=== PATIENT | male | born 1970 | race Caucasian/White ===

== ENCOUNTER 2017-10-22 09:45 | Emergency (ER) | payer SELFPAY ==
[2017-10-22 10:11] VITALS: BP 134/84
--- NOTE | 2017-10-22 11:04 | UC ---
General HPI - HPI Summary HPI Summary: The patient is a 46-year-old male who presents here with a 6 month history of fatigue and muscle aches. When I entered the room he asked how much it would cost to be seen here. I told him that I did not it know the exact cost but that the bills received from here are typically a little less or perhaps the same as an emergency room visit. He states she was very disappointed that when he told the front desk associate that he was self-pay that he was not informed that this was an expensive visit. 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 He states he has no insurance. He states that he is most concerned about tick borne illnesses. When he learned that his bill would be greater than $100 and that he would be charged additionally for any blood tests ordered he declined any further history or physical exam. In my discussions with him I could tell he was of sound mind. His vital signs were reviewed as well as the nurse's note. In speaking to him he did not appear to have any respiratory problems and he appeared in no distress. He was wearing short- sleeved shirt as well as shorts and all the joints that were visible appeared normal without any erythema or swelling. I was unable to do a complete history and physical exam. I explained to him that I felt his symptoms warranted a thorough exam as well as blood work. I told him I felt he needed a CBC , chemistries, thyroid function tests, rheumatological screening tests, as well as tests for tick born diseases. I explained the risks involved in leaving [place]. I explained that him leaving here without me doing a complete exam and history could result in delay of diagnosis. Explained that his diagnosis could involve infectious disease that prompt treatment of those potential diseases may save him from particularly harmful complications, including . He declined. I'm unable to document any past medical history other than what is noted in the nurse's note. I am unable to document a complete review of systems. He do not know his family history. I am unable to document a complete physical exam. - History of Current Complaint Chief Complaint: UCGeneralIllness Stated Complaint: ACHEY,FATIGUE Time Seen by Provider: 10/22/17 10:10 Pain Intensity: 6 - Allergy/Home Medications Allergies/Adverse Reactions: Allergies Allergy/AdvReac Type Severity Reaction Status Date / Time No Known Allergies Allergy Verified 10/22/17 10:08 Home Medications: Home Medications NK [No Home Medications Reported] 10/22/17 [History Confirmed 10/22/17] PMH/Surg Hx/FS Hx/Imm Hx - Surgical History Surgical History: None - Family History Family History: not obtained - Social History Alcohol Use: None Alcohol Amount: history of alcohol abuse Substance Use Type: None Smoking Status (MU): Current Some Day Smoker Type: Cigars Amount Used/How Often: socially/occasionally Review of Systems All Other Systems Reviewed And Are Negative: No Physical Exam Triage Information Reviewed: Yes Vital Signs: Initial Vital Signs Temp 98.0 F 10/22/17 10:02 Pulse 77 10/22/17 10:02 Resp 15 10/22/17 10:02 BP 134/84 10/22/17 10:02 Pulse Ox 98 10/22/17 10:02 Vital Signs Reviewed: Yes Course/Dx - Differential Dx - Multi-Symptom Provider Diagnoses: no diagnosis. left without complete history and physical. left AMA Discharge - Sign-Out/Discharge Documenting (check all that apply): Patient Departure - Discharge Plan Condition: Stable Disposition: AGAINST MEDICAL ADVICE Patient Education Materials: Fatigue (ED) Referrals: [facility] [place], [place] [facility] REFERRAL [Outside] [place] [employer], [Z.BUSINESS, APPLICATION, OTHER] - Additional Instructions: please feel free to return if you so desire your symptoms demand a complete physical as well as blood work due to your travels and profession I suggest tests for Lyme disease/ehrlichiosis/Babesiosis I think you should have a complete blood count/chemistries as well as a rheumatological work up I think you should have your thyroid function tested as well see the numbers here to help find a local physician - Billing Disposition and Condition Condition: STABLE Disposition: Against Medical Advice
== END 2017-10-22 10:55 | disposition left against medical advice (07) ==
LOC: UCCORT 09:45
DX: R53.83 Other fatigue (principal); M79.1 Myalgia; F17.210 Nicotine dependence, cigarettes, uncomplicated; Z53.29 Procedure and treatment not carried out because of patient's decision for other reasons
CPT/HCPCS: 99202; G0463